=== PATIENT | female | born 1995 | race Caucasian/White ===

== ENCOUNTER 2016-11-21 11:24 | Emergency (ER) | payer OTHER ==
[~2016-11-21] VITALS: Ht 154.9 cm; Wt 77.1 kg
[~2016-11-21 11:24] MED LIST: AMOXICILLIN500 M2 PO; AMOXIL250 M1 PO; ATARAX,VISTARIL50 MG PO; ATARAX25 MG PO; AUGMENTIN 875 M1 TA1 PO; BACTRIM PO; BACTROBAN21 NS; BIRTH CONTROL1 EAC1 PO; DEPO PROVER150 MG/M1 IM; ELIMITE 5%60 GM T; MOTRIN400 MG PO; Motrin,Rufen800 MG PO; NO DAILY MEDS; PHENERGAN12.5 MG RC; PREDNICOT20 MG PO; PRELONE5 MG/5 ML PO; PRENATAL PLUS1 EAC1 PO; TRIMOX500 MG PO; ZITHROMAX Z PA250 MG PO
[2016-11-21] MEDS ORDERED: AMOXICILLIN500 M2 PO (11:46)
[2016-11-21] MEDS ORDERED: Motrin,Rufen800 MG PO (11:46)
[2016-11-21] MEDS ORDERED: NORCO 5-325 TA1 EACH PO (11:46)
== END 2016-11-21 12:25 | disposition home or self-care (01) ==
LOC: ED 11:24
DX: K08.89 Other specified disorders of teeth and supporting structures (principal); H66.91 Otitis media, unspecified, right ear; Z88.1 Allergy status to other antibiotic agents

== ENCOUNTER → 2017-02-14 | Outpatient (CLI) | payer OTHER ==
[~2017-02-14] MED LIST changes: +NORCO 5-325 TA1 EACH PO
== END | disposition home or self-care (01) ==
LOC: RAD 14:02
DX: M54.5 Low back pain (principal); M54.6 Pain in thoracic spine; G89.29 Other chronic pain

== ENCOUNTER → 2017-10-16 | Outpatient (CLI) | payer OTHER | END | disposition home or self-care (01) | LOC: MRI 08:46 | DX: M54.5 Low back pain (principal) ==

== ENCOUNTER 2018-04-01 10:08 | Emergency (ER) | payer SELFPAY ==
[~2018-04-01] VITALS: Ht 154.9 cm; Wt 77.1 kg
[2018-04-01] MEDS ORDERED: OMNICEF300 MG PO (10:21)
== END 2018-04-01 10:40 | disposition home or self-care (01) ==
LOC: ED 10:08
DX: H66.91 Otitis media, unspecified, right ear (principal); Z88.2 Allergy status to sulfonamides

== ENCOUNTER 2019-05-08 18:26 | Emergency (ER) | payer OTHER ==
[~2019-05-08] VITALS: Ht 154.9 cm; Wt 81.6 kg
[~2019-05-08 18:26] MED LIST changes: +OMNICEF300 MG PO
[2019-05-08 18:55] LABS: BILIRUBIN NEGATIVE (NEGATIVE); BLOOD TRACE-INTACT (NEGATIVE); CLARITY SL CLOUDY (CLEAR); COLOR YELLOW (YELLOW); GLUCOSE NEGATIVE (NEGATIVE); KETONE NEGATIVE (NEGATIVE); LEUKO ESTERASE NEGATIVE (NEGATIVE); NITRITE NEGATIVE (NEGATIVE); UROBILINOGEN 0.2 E.U./dl (0.2-1.0)
[2019-05-08 19:07] LABS: BACTERIA 3+; EPITHELIAL CELLS 51-100
== END 2019-05-08 19:43 | disposition home or self-care (01) ==
LOC: ED 18:26
PROVIDERS: Nurse Practitioner Family
DX: N91.2 Amenorrhea, unspecified (principal); Z32.01 Encounter for pregnancy test, result positive; Z88.2 Allergy status to sulfonamides; Z79.2 Long term (current) use of antibiotics; Z79.899 Other long term (current) drug therapy

== ENCOUNTER 2022-06-06 11:16 | Emergency (ER) | payer OTHER ==
[~2022-06-06] VITALS: Ht 182.8 cm; Wt 81.6 kg
[2022-06-06 13:21] LABS: BASO # 0.1 10*3/uL (0.0-0.1); BASO % 0.5 % (0.0-1.0); EOS # 0.1 10*3/uL (0.0-0.4); EOS % 0.7 % (1.0-4.0); HEMATOCRIT 41.4 % (37.0-47.0); LYMPH # 1.5 10*3/uL (1.3-4.4); LYMPH % 8.4 % (27.0-41.0); MEAN CELL VOLUME 87.5 fl (81.0-99.0); MEAN CORPUSCULAR HGB CONC 34.3 g/dl (33.0-37.0); MEAN PLATELET VOLUME 9.9 fl (9.6-12.3); MONO # 0.7 10*3/uL (0.1-1.0); MONO % 3.9 % (3.0-9.0); NEUT # 15.3 10*3/uL (2.3-7.9); NEUT % 85.9 % (47.0-73.0); PLATELET COUNT AUTOMATED 306 10*3/uL (130-400); RED BLOOD COUNT 4.73 10*6/uL (4.10-5.10); RED CELL DISTRI WIDTH 13.2 % (0-14.5); WHITE BLOOD COUNT 17.8 10*3/uL (4.8-10.8)
[2022-06-06 13:36] LABS: ALKALINE PHOSPHATASE 85 U/L (46-116); BETA-HCG, QUANT < 3.0 mIU/mL (0-10); BUN 10 mg/dl (9-23); CHLORIDE 101 mmol/L (98-107); LIPASE 27 U/L (12-53); POTASSIUM 3.5 mmol/L (3.4-5.1); SGPT/ALT 12 U/L (10-49); TOTAL PROTEIN 8.1 gm/dL (6.0-8.0)
[2022-06-06 14:09] LABS: BILIRUBIN Negative (Negative); BLOOD Negative (Negative); CLARITY Clear (Clear); COLOR Dark Yellow (Yellow); GLUCOSE Negative (Negative); KETONE 4+ (Negative); LEUKO ESTERASE Trace (Negative); NITRITE Negative (Negative); PH 5.5 (4.5-8.0); SPECIFIC GRAVITY >= 1.030 (1.001-1.030)
[2022-06-06 14:23] LABS: BACTERIA 2+
[2022-06-06 14:24] LABS: CALCIUM OXALATE CRYSTALS Trace; MUCOUS 2+
[2022-06-06] MEDS ORDERED: ONDANSETRON4 MG SL (15:36)
[2022-06-06] MEDS ORDERED: AMOXICILLIN500 M2 PO (15:41)
== END 2022-06-06 16:05 | disposition home or self-care (01) ==
LOC: ED 11:16
PROVIDERS: Physician Assistant
DX: J02.0 Streptococcal pharyngitis (principal); B34.9 Viral infection, unspecified; Z88.2 Allergy status to sulfonamides; Z88.8 Allergy status to other drugs, medicaments and biological substances; Z98.890 Other specified postprocedural states; Z87.891 Personal history of nicotine dependence; Z79.899 Other long term (current) drug therapy

== ENCOUNTER → 2022-12-17 | Outpatient (CLI) | payer OTHER ==
[~2022-12-17] MED LIST changes: +ONDANSETRON4 MG SL
== END | disposition home or self-care (01) ==
LOC: RAD 15:05
PROVIDERS: ATTEND Nurse Practitioner Family
DX: R05.3 Chronic cough (principal); M47.814 Spondylosis without myelopathy or radiculopathy, thoracic region

== ENCOUNTER → 2022-12-28 | Outpatient (CLI) | payer OTHER | END | disposition home or self-care (01) | LOC: US 07:30 | PROVIDERS: ATTEND Nurse Practitioner Women's Health | DX: N88.8 Other specified noninflammatory disorders of cervix uteri (principal); R14.0 Abdominal distension (gaseous) ==

== ENCOUNTER → 2023-01-10 | Outpatient (CLI) | payer OTHER | END | disposition home or self-care (01) | LOC: CP 14:18 | PROVIDERS: ATTEND Specialist | DX: R05.3 Chronic cough (principal) ==

== ENCOUNTER → 2023-06-13 | Outpatient (CLI) | payer OTHER | END | disposition home or self-care (01) | LOC: RAD 14:47 | PROVIDERS: ATTEND Nurse Practitioner Family | DX: M77.31 Calcaneal spur, right foot (principal) ==